=== PATIENT | female | born 1965 | race Caucasian/White ===

== ENCOUNTER 2016-11-07 21:57 | Emergency (ER) | payer OTHER | END 2016-11-08 02:26 | disposition home or self-care (01) | LOC: ER 21:57 | DX: N20.1 Calculus of ureter (principal); N39.0 Urinary tract infection, site not specified; R10.32 Left lower quadrant pain; R11.0 Nausea; E66.9 Obesity, unspecified; Z79.891 Long term (current) use of opiate analgesic; Z88.1 Allergy status to other antibiotic agents; Z88.6 Allergy status to analgesic agent ==

== ENCOUNTER 2017-01-13 19:43 | Emergency (ER) | payer OTHER | END 2017-01-13 22:39 | disposition home or self-care (01) | LOC: ER 19:43 | DX: M79.642 Pain in left hand (principal); I10 Essential (primary) hypertension; Z88.1 Allergy status to other antibiotic agents; Z79.899 Other long term (current) drug therapy; Z79.84 Long term (current) use of oral hypoglycemic drugs; Z79.891 Long term (current) use of opiate analgesic | CPT/HCPCS: 73130; 99070; 99283 ==